=== PATIENT | female | born 1985 | race Two or more races ===

== ENCOUNTER → 2018-02-12 | Outpatient (CLI) | payer OTHER ==
[~2018-02-12] MED LIST: SYNTHROID100 MCG
== END | disposition home or self-care (01) ==
LOC: PPHC 16:00
DX: M54.89 Other dorsalgia (principal)

== ENCOUNTER 2018-02-14 08:53 | Outpatient (CLI) | payer OTHER | END 2018-02-14 09:09 | disposition home or self-care (01) | LOC: LAB 08:53 → RAD 08:53 | DX: M54.5 Low back pain (principal) ==

== ENCOUNTER → 2018-02-16 12:10 | Outpatient (CLI) | payer OTHER | END | disposition home or self-care (01) | LOC: LAB 12:10 | DX: D64.9 Anemia, unspecified (principal) ==

== ENCOUNTER → 2018-02-16 | Outpatient (CLI) | payer OTHER | END | disposition home or self-care (01) | LOC: PPHC 09:26 | DX: Z01.89 Encounter for other specified special examinations (principal) ==

== ENCOUNTER → 2018-02-26 | Outpatient (CLI) | payer OTHER | END | disposition home or self-care (01) | LOC: PPHC 14:23 | DX: D64.89 Other specified anemias (principal) ==

== ENCOUNTER 2018-06-11 15:19 | Outpatient (CLI) | payer OTHER | END 2018-06-11 15:20 | disposition home or self-care (01) | LOC: LAB 15:19 | DX: D50.0 Iron deficiency anemia secondary to blood loss (chronic) (principal); N93.9 Abnormal uterine and vaginal bleeding, unspecified; D50.8 Other iron deficiency anemias; D51.8 Other vitamin B12 deficiency anemias; I10 Essential (primary) hypertension; D55.0 Anemia due to glucose-6-phosphate dehydrogenase [G6PD] deficiency; D51.1 Vitamin B12 deficiency anemia due to selective vitamin B12 malabsorption with proteinuria; D51.0 Vitamin B12 deficiency anemia due to intrinsic factor deficiency; E03.8 Other specified hypothyroidism; E06.3 Autoimmune thyroiditis ==

== ENCOUNTER → 2018-06-11 | Outpatient (CLI) | payer OTHER | END | disposition home or self-care (01) | LOC: RAD 13:11 | DX: D50.0 Iron deficiency anemia secondary to blood loss (chronic) (principal); N93.9 Abnormal uterine and vaginal bleeding, unspecified; E03.8 Other specified hypothyroidism; E06.3 Autoimmune thyroiditis; M25.562 Pain in left knee ==

== ENCOUNTER → 2018-07-22 06:27 | Outpatient (CLI) | payer OTHER | END | disposition home or self-care (01) | LOC: LAB 06:27 | DX: E03.8 Other specified hypothyroidism (principal); D50.8 Other iron deficiency anemias ==

== ENCOUNTER 2018-12-14 11:44 | Outpatient (CLI) | payer OTHER | END 2018-12-14 15:52 | disposition home or self-care (01) | LOC: LAB 11:44 | DX: D50.0 Iron deficiency anemia secondary to blood loss (chronic) (principal); N93.9 Abnormal uterine and vaginal bleeding, unspecified; F41.1 Generalized anxiety disorder; E06.3 Autoimmune thyroiditis; E03.8 Other specified hypothyroidism; D50.8 Other iron deficiency anemias; D51.8 Other vitamin B12 deficiency anemias; I10 Essential (primary) hypertension; R97.0 Elevated carcinoembryonic antigen [CEA]; R97.8 Other abnormal tumor markers ==